=== PATIENT | female | born 1995 | race Two or more races ===

== ENCOUNTER → 2020-01-21 | Outpatient (CLI) | payer OTHER | END | disposition home or self-care (01) | LOC: PRENATAL 10:00 | PROVIDERS: ATTEND Obstetrics & Gynecology Maternal & Fetal Medicine | DX: O35.0XX1 Maternal care for (suspected) central nervous system malformation in fetus, fetus 1 (principal); O13.2 Gestational [pregnancy-induced] hypertension without significant proteinuria, second trimester; O35.3XX1 Maternal care for (suspected) damage to fetus from viral disease in mother, fetus 1; O98.52 Other viral diseases complicating childbirth; Z36.89 Encounter for other specified antenatal screening; Z3A.22 22 weeks gestation of pregnancy ==

== ENCOUNTER → 2020-03-03 | Outpatient (CLI) | payer OTHER | END | disposition home or self-care (01) | LOC: PRENATAL 08:00 | PROVIDERS: ATTEND Obstetrics & Gynecology Maternal & Fetal Medicine | DX: O26.842 Uterine size-date discrepancy, second trimester (principal); O13.2 Gestational [pregnancy-induced] hypertension without significant proteinuria, second trimester; O44.02 Complete placenta previa NOS or without hemorrhage, second trimester; Z36.89 Encounter for other specified antenatal screening; Z3A.27 27 weeks gestation of pregnancy ==

== ENCOUNTER 2020-04-13 08:03 | Inpatient (IN) | payer OTHER ==
[~2020-04-13] VITALS: Ht 170.2 cm; Wt 2.3 kg
[2020-04-14] MEDS ORDERED: PRENATAL TABLE1 EAC1 PO (14:33)
[2020-04-18] MEDS ORDERED: CODE1TAB37 PO (08:12)
[2020-04-18] MEDS ORDERED: NAPR500T14 PO (08:13)
[2020-04-18] MEDS ORDERED: METHYLDOPA500 MG PO (08:13)
[2020-04-18] MEDS ORDERED: DOCUSATE SODIU100 MG PO (08:13)
== END 2020-04-18 13:51 | disposition home or self-care (01) | DRG 788 ==
LOC: PRENATAL 08:03 → LDR 04-14 04:58 → OB/GYN 04-14 04:58 → LDR 04-14 09:54 → OB/GYN 04-15 09:41 → LDR 04-15 10:41 → OB/GYN 04-15 18:37
PROVIDERS: ADMIT Obstetrics & Gynecology; ATTEND Obstetrics & Gynecology
PROC: 4A1HXFZ Monitoring of Products of Conception, Cardiac Rhythm, External Approach (ICD-10-PCS; 2020-04-15)
PROC: 3E033VJ Introduction of Other Hormone into Peripheral Vein, Percutaneous Approach (ICD-10-PCS; 2020-04-15)
PROC: 10D00Z1 Extraction of Products of Conception, Low, Open Approach (ICD-10-PCS; principal; 2020-04-15 15:00)
DX: O44.13 Complete placenta previa with hemorrhage, third trimester (principal); O62.1 Secondary uterine inertia; Z3A.34 34 weeks gestation of pregnancy; Z37.0 Single live birth; Z20.828 Contact with and (suspected) exposure to other viral communicable diseases; O13.4 Gestational [pregnancy-induced] hypertension without significant proteinuria, complicating childbirth